=== PATIENT | female | born 1945 | race Two or more races ===

== ENCOUNTER 2020-03-10 15:02 | Outpatient (CLI) | payer OTHER | END 2020-03-10 15:05 | disposition home or self-care (01) | LOC: LAB 15:02 | PROVIDERS: ATTEND Radiology Diagnostic Radiology | DX: N20.0 Calculus of kidney (principal) ==

== ENCOUNTER 2020-03-11 08:42 | Outpatient (CLI) | payer OTHER | END 2020-03-11 08:55 | disposition home or self-care (01) | LOC: MRI 08:42 | PROVIDERS: ATTEND Otolaryngology Otology & Neurotology | DX: H91.8X2 Other specified hearing loss, left ear (principal) | CPT/HCPCS: 70543; A9575; 70552 ==

== ENCOUNTER 2020-08-04 07:13 | Outpatient (CLI) | payer OTHER | END 2020-08-04 07:26 | disposition home or self-care (01) | LOC: TOM 07:13 | PROVIDERS: ATTEND Specialist | DX: M50.30 Other cervical disc degeneration, unspecified cervical region (principal); M51.37 Other intervertebral disc degeneration, lumbosacral region ==

== ENCOUNTER 2020-11-16 14:41 | Outpatient (CLI) | payer OTHER | END 2020-11-16 14:53 | disposition home or self-care (01) | LOC: TOM 14:41 | PROVIDERS: ATTEND Otolaryngology | DX: M26.603 Bilateral temporomandibular joint disorder, unspecified (principal) ==

== ENCOUNTER 2021-02-03 15:08 | Outpatient (CLI) | payer OTHER | END 2021-02-03 15:12 | disposition home or self-care (01) | LOC: LAB 15:08 | PROVIDERS: ATTEND Radiology Diagnostic Radiology | DX: M77.8 Other enthesopathies, not elsewhere classified (principal); L03.039 Cellulitis of unspecified toe ==

== ENCOUNTER 2021-02-04 10:05 | Outpatient (CLI) | payer OTHER | END 2021-02-04 10:15 | disposition home or self-care (01) | LOC: MRI 10:05 | DX: M86.8X7 Other osteomyelitis, ankle and foot (principal); M77.8 Other enthesopathies, not elsewhere classified; L03.031 Cellulitis of right toe | CPT/HCPCS: 73720 ==

== ENCOUNTER 2021-03-02 12:02 | Emergency (ER) | payer OTHER ==
[~2021-03-02] VITALS: Ht 149.9 cm; Wt 51.7 kg
[2021-03-02] MEDS ORDERED: SYNTHROID50 MCG PO (12:17)
[2021-03-02] MEDS ORDERED: CIPRO500 MG/5 M PO (12:18)
[2021-03-02] MEDS ORDERED: DICLOFENAC POTA50 MG PO (12:43)
[2021-03-02] MEDS ORDERED: OFLOXACIN5 M1 OTIC (12:43)
== END 2021-03-02 12:58 ==
LOC: ER 12:02
DX: H60.8X1 Other otitis externa, right ear (principal)

== ENCOUNTER 2021-07-30 09:37 | Emergency (ER) | payer OTHER ==
[~2021-07-30] VITALS: Ht 149.9 cm; Wt 51.7 kg
[~2021-07-30 09:37] MED LIST: CIPRO500 MG/5 M PO; DICLOFENAC POTA50 MG PO; OFLOXACIN5 M1 OTIC; SYNTHROID50 MCG PO
== END 2021-07-30 10:36 | disposition home or self-care (01) ==
LOC: ER 09:37
DX: H60.8X3 Other otitis externa, bilateral (principal)